=== PATIENT | male | born 1965 | race Caucasian/White ===

== ENCOUNTER → 2025-01-20 11:05 | Outpatient (BNVA) | payer OTHER, SELFPAY | PROVIDERS: Referring Provider Nurse Practitioner Family; Visit Provider Psychiatry & Neurology Neurology | DX: M79.89 Other specified soft tissue disorders (principal); G56.01 Carpal tunnel syndrome, right upper limb; R29.898 Other symptoms and signs involving the musculoskeletal system; R20.0 Anesthesia of skin; R20.2 Paresthesia of skin | CPT/HCPCS: 95885; 95913 ==